=== PATIENT | female | born 1955 | race Caucasian/White ===

== ENCOUNTER 2019-04-17 15:45 | Observation (INO) | payer SELFPAY ==
[~2019-04-17] VITALS: Ht 152.4 cm; Wt 64.4 kg
--- NOTE | 2019-04-17 15:45 | NUR ---
PT ARRIVAL PER POV WITH EX- REQUESTING HELP AT CAR IN PARKING LOT. PT HAS HAD 2 SEIZURES TODAY SHE TOLD HIM ABOUT ON A PHONE CALL THEN HE DROPPED BY TO SEE HER AND ANOTHER SEIZURE OCCURED. HE REPORTS SHE IS KNOWN SEIZURES AND ON MEDICINE. PATIENT IS ALITTLE DISORIENTED STILL IN POST ICTAL PHASE. EX- STATES "SHE IS UNDER STRESS LATELY AND RECENTLY LOST HER SIGNIFICANT OTHER." REPORTS GRAND MAL SEIZURE HX. PT HX LIMITED PATIENT UNABLE TO PROVIDE. WILL REFER TO [facility] RECORDS
[2019-04-17] MEDS ORDERED: LEVETIRACETAM INJECTION 1,000 MG in NS (IVPB) 100 ML IV ONE (16:15)
[2019-04-17] MEDS ORDERED: ONDANSETRON 4 MG/2 ML (SDV) Z0FRAN IVP ONE (16:15)
[2019-04-17] MEDS ORDERED: NS 1000 ML IV BAG IV ONE (16:15)
[2019-04-17 16:25] LABS: HEMATOCRIT 45 % (35-52); HEMOGLOBIN 15.1 G/DL (11.5-16.0); MEAN CORPUSCULAR HEMOGLOBIN 35 PG (25-34); MEAN CORPUSCULAR VOLUME 103 FL (80-99); WHITE BLOOD COUNT 5.6 10^3/uL (4.3-11.0)
[2019-04-17 16:26] LABS: BASOPHILS % (AUTO) 1 % (0-10); EOSINOPHILS % (AUTO) 0 % (0-10); LYMPHOCYTES # (AUTO) 0.6 X 10^3 (1.0-4.0); LYMPHOCYTES % (AUTO) 12 % (12-44); MEAN CORPUSCULAR HGB CONC 34 G/DL (32-36); MEAN PLATELET VOLUME 10.4 FL (7.4-10.4); MONOCYTES # (AUTO) 0.4 X 10^3 (0.0-1.0); MONOCYTES % (AUTO) 8 % (0-12); NEUTROPHILS # (AUTO) 4.5 X 10^3 (1.8-7.8); NEUTROPHILS % (AUTO) 80 % (42-75); PLATELET COUNT 186 10^3/uL (130-400); RED CELL DISTRIBUTION WIDTH 18.3 % (10.0-14.5)
[2019-04-17 16:36] LABS: ALANINE AMINOTRANSFERASE 102 U/L (0-55); ALBUMIN 4.6 GM/DL (3.2-4.5); ALKALINE PHOSPHATASE 67 U/L (40-136); BILIRUBIN,TOTAL 0.6 MG/DL (0.1-1.0); BUN/CREATININE RATIO 12; CALCIUM 9.9 MG/DL (8.5-10.1); CARBON DIOXIDE 24 MMOL/L (21-32); CHLORIDE 98 MMOL/L (98-107); GFR ESTIMATED > 60; GLUCOSE 176 MG/DL (70-105); MAGNESIUM 1.6 MG/DL (1.8-2.4); POTASSIUM 3.9 MMOL/L (3.6-5.0); SODIUM 143 MMOL/L (135-145); TOTAL PROTEIN 8.2 GM/DL (6.4-8.2)
--- NOTE | 2019-04-17 16:44 | Diagnostic Imaging Report ---
PROCEDURE: CT head without contrast. TECHNIQUE: Multiple contiguous axial images were obtained through the brain without the use of intravenous contrast. Auto Exposure Controls were utilized during the CT exam to meet ALARA standards for radiation dose reduction. INDICATION: Multiple seizures today. COMPARISON: None. FINDINGS: The ventricles and cortical sulci appear mildly prominent. There is no midline shift or mass effect. No acute intracranial hemorrhage is seen. There is no CT evidence of acute territorial ischemia. The calvarium appears intact. Visualized paranasal sinuses are clear. IMPRESSION: 1. No acute intracranial hemorrhage or CT evidence of acute territorial ischemia. 2. Generalized parenchymal volume loss. Dictated by: Dictated on workstation # [id number]
--- NOTE | 2019-04-17 16:46 | ED Neurological Problem ---
General Chief Complaint: Neurological Problems Stated Complaint: SEIZURES History of Present Illness Date Seen by Provider: Apr 17, 2019 Time Seen by Provider: 16:42 Initial Comments Patient presenting to the emergency department with ex- for apparent seizures. Patient reports having 2 seizures this morning and then ex- went to check on her and said that she appeared to not feel well. Patient then had a 45 second grand mal seizure per ex-. She had urinary incontinence and bit her tongue. Patient reports being on Depakote 250 mg twice a day with no recent medication changes. She does not know when her last seizure was. She is alert and oriented 2 and she is confused on the date. She says her tetanus is up-to-date. She says she is nauseated but denies any fevers chills vomiting headache neck stiffness or lateral weakness numbness tingling vision changes chest pain or shortness of breath. She is in no obvious distress with normal vital signs. Allergies and Home Medications Allergies Coded Allergies: No Known Drug Allergies (Unverified , 04/17/19) Patient Home Medication List Home Medication List Reviewed: Yes Review of Systems Review of Systems Constitutional: no symptoms reported Eyes: No Symptoms Reported Ears, Nose, Mouth, Throat: no symptoms reported Respiratory: no symptoms reported Cardiovascular: no symptoms reported Gastrointestinal: nausea Genitourinary: no symptoms reported Psychiatric/Neurological: Tonic Clonic Seizures All Other Systems Reviewed Negative Unless Noted: Yes Past Dpzfadl-Sceqts-Zlmiog Hx Patient Social History Recent Foreign Travel: No Contact w/Someone Who Travel: No Physical Exam Vital Signs Capillary Refill : Height, Weight, BMI Height: '" Weight: lbs. oz. kg; BMI Method: General Appearance: WD/WN, no apparent distress HEENT: PERRL/EOMI, pharynx normal Neck: non-tender, full range of motion, supple Respiratory: normal breath sounds, no accessory muscle use Cardiovascular: regular rate, rhythm Gastrointestinal: non tender, soft Back: normal inspection Extremities: normal range of motion Neurologic/Psychiatric: alert Crainal Nerves: PERRL Motor/Sensory: no motor deficit, no sensory deficit Skin: normal color, warm/dry Progress/Results/Core Measures Results/Orders Lab Results Laboratory Tests Test 04/17/19 16:00 04/17/19 18:19 Range/Units White Blood Count 5.6 4.3-11.0 10^3/uL Red Blood Count 4.33 L 4.35-5.85 10^6/uL Hemoglobin 15.1 11.5-16.0 G/DL Hematocrit 45 35-52 % Mean Corpuscular Volume 103 H 80-99 FL Mean Corpuscular Hemoglobin 35 H 25-34 PG Mean Corpuscular Hemoglobin Concent 34 32-36 G/DL Red Cell Distribution Width 18.3 H 10.0-14.5 % Platelet Count 186 130-400 10^3/uL Mean Platelet Volume 10.4 7.4-10.4 FL Neutrophils (%) (Auto) 80 H 42-75 % Lymphocytes (%) (Auto) 12 12-44 % Monocytes (%) (Auto) 8 0-12 % Eosinophils (%) (Auto) 0 0-10 % Basophils (%) (Auto) 1 0-10 % Neutrophils # (Auto) 4.5 1.8-7.8 X 10^3 Lymphocytes # (Auto) 0.6 L 1.0-4.0 X 10^3 Monocytes # (Auto) 0.4 0.0-1.0 X 10^3 Eosinophils # (Auto) 0.0 0.0-0.3 10^3/uL Basophils # (Auto) 0.0 0.0-0.1 10^3/uL Sodium Level 143 135-145 MMOL/L Potassium Level 3.9 3.6-5.0 MMOL/L Chloride Level 98 98-107 MMOL/L Carbon Dioxide Level 24 21-32 MMOL/L Anion Gap 21 H 5-14 MMOL/L Blood Urea Nitrogen 7 7-18 MG/DL Creatinine 0.60 0.60-1.30 MG/DL Estimat Glomerular Filtration Rate > 60 BUN/Creatinine Ratio 12 Glucose Level 176 H 70-105 MG/DL Calcium Level 9.9 8.5-10.1 MG/DL Corrected Calcium 8.5-10.1 MG/DL Magnesium Level 1.6 L 1.8-2.4 MG/DL Total Bilirubin 0.6 0.1-1.0 MG/DL Aspartate Amino Transf (AST/SGOT) 165 H 5-34 U/L Alanine Aminotransferase (ALT/SGPT) 102 H 0-55 U/L Alkaline Phosphatase 67 40-136 U/L Total Protein 8.2 6.4-8.2 GM/DL Albumin 4.6 H 3.2-4.5 GM/DL Serum Alcohol < 10 <10 MG/DL My Orders Orders - LISBETH MOSER DO Valproic Acid (04/17/19 16:09) Ct Head Wo (04/17/19 16:09) Cbc With Automated Diff (04/17/19 16:09) Comprehensive Metabolic Panel (04/17/19 16:09) Alcohol (04/17/19 16:09) Magnesium (04/17/19 16:09) Ua Culture If Indicated (04/17/19 16:09) Drug Screen Stat (Urine) (04/17/19 16:09) Ekg Tracing (04/17/19 16:09) Ondansetron Injection (Zofran Injectio (04/17/19 16:15) Ns Iv 1000 Ml (Sodium Chloride 0.9%) (04/17/19 16:15) Levetiracetam Injection (Keppra Injectio (04/17/19 16:15) Ns Iv 1000 Ml (Sodium Chloride 0.9%) (04/17/19 18:15) Medications Given in ED Current Medications Medications Dose Ordered Sig/J Carlos Route Start Time Stop Time Status Last Admin Dose Admin Levetiracetam 1000 mg/Sodium Chloride 110 ml @ 500 mls/hr ONCE ONCE IV 04/17/19 16:15 04/17/19 16:28 DC 04/17/19 16:37 500 MLS/HR Ondansetron HCl 4 mg ONCE ONCE IVP 04/17/19 16:15 04/17/19 16:16 DC 04/17/19 16:27 4 MG Progress Progress Note : Progress Note We do not have Depakote IV or by mouth available here so I'm going to give her dose of IV Keppra IV fluids check labs urinalysis CT and observed closely. My plan was to let patient go home on increased dose of her Depakote to 500 mg twice a day from 250 mg twice a day. I spoke to Dr. cMneil and he recommended getting started on eloquis for atrial fibrillation and following in clinic in 2 days with him. Patient however cannot walk with a steady gait and felt as if she is going to fall and had to be assisted to and from the bathroom. She is still somewhat sleepy and not at her neurologic baseline so she'll be admitted for altered seizures with prolonged postictal period and new onset atrial fibrillation. Patient transferred in stable condition. Departure Impression Primary Impression: Seizure Additional Impressions: Post-ictal state New onset a-fib Disposition: ADMITTED INPATIENT Condition: Stable Departure-Patient Inst. Referrals: NO,LOCAL PHYSICIAN (PCP) Primary Care Physician LISBETH MOSER DO Apr 17, 2019 16:46
[2019-04-17] MEDS ORDERED: NS IV 1000 ML 1,000 ML IV ONE (18:15)
--- NOTE | 2019-04-17 18:50 | NUR ---
REPORT TO TRAV TORRES. PLAN ADMIT.
[2019-04-17 18:57] LABS: AMPHETAMINE SCREEN, URINE NEGATIVE (NEGATIVE); BARBITURATE SCREEN URINE NEGATIVE (NEGATIVE); BENZODIAZEPINES SCREEN URINE NEGATIVE (NEGATIVE); CANNABINOID SCREEN, URINE NEGATIVE (NEGATIVE); COCAINE SCREEN URINE NEGATIVE (NEGATIVE); METHADONE STAT NEGATIVE (NEGATIVE); METHAMPHETAMINE SCREEN URINE S NEGATIVE (NEGATIVE); OPIATE SCREEN URINE NEGATIVE (NEGATIVE); OXYCODONE STAT NEGATIVE (NEGATIVE); PROPOXYPHENE STAT NEGATIVE (NEGATIVE); TRICYCLIC ANTIDEPRESSANTS SCRE NEGATIVE (NEGATIVE)
[2019-04-17 19:01] LABS: BACTERIA,URINE FEW /HPF; BILIRUBIN,URINE NEGATIVE (NEGATIVE); CLARITY,URINE CLEAR; COLOR,URINE YELLOW; GLUCOSE, URINE (UA) NEGATIVE (NEGATIVE); KETONES,URINE 1+ (NEGATIVE); LEUKOCYTE ESTERASE ,URINE NEGATIVE (NEGATIVE); NITRITE,URINE NEGATIVE (NEGATIVE); PROTEIN,URINE 1+ (NEGATIVE); RBC,URINE 0-2 /HPF; UROBILINOGEN,URINE 0.2 MG/DL (NORMAL)
--- NOTE | 2019-04-17 19:48 | NUR ---
REPORT RECEIVED FROM MELISSA RAVI [facility]. THIS RN WILL AWAIT PT ARRIVAL VIA EMS.
--- NOTE | 2019-04-17 20:30 | NUR ---
BRONWYN LOPEZ admitted to room 419-1, with an admitting diagnosis of SEIZURES, on 04/17/19 from [facility] via [facility], accompanied by EMS. BRONWYN LOPEZ introduced to surroundings, call light, bed controls, phone, TV, temperature control, lights, meal times, smoking policy, visitor policy, side rail policy, bathrooms and showers. Patient Rights given to patient in the handbook. BRONWYN LOPEZ verbalizes understanding that [facility] is not responsible for the loss or damage to any personal effects or valuables that are kept in the patients possession during their hospitalization. BRONWYN LOPEZ verbalizes understanding of Interdisciplinary Patient Education. Patient WAS informed about the Rapid Response Team and its purpose.
[2019-04-17 20:44] VITALS: BP 109/76
[2019-04-17] MEDS ORDERED: DIVA250T2 PO (21:13)
--- NOTE | 2019-04-17 21:30 | NUR ---
DR EVANS NOTIFIED PER PT REQUEST FOR TYLENOL FOR HEADACHE. NEW ORDER RECEIVED.
[2019-04-17] MEDS ORDERED: ACETAMINOPHEN 325 MG TABLET PO PRN (21:45)
--- NOTE | 2019-04-17 21:50 | NUR ---
THIS RN SPOKE TO PT EX , KENNEY. HE STATED THAT PT HAS ONLY BEEN TAKING HER PRESCRIPTION OF DEPAKOTE ONCE DAILY. THIS RN WILL PASS INFORMATION ON TO ONCOMING SHIFT.
[2019-04-18] VITALS: BP 114/76
--- OUTSIDE RECORDS SUMMARY | 2019-04-18 02:00 | XMS REPORT | Continuity of Care Document ---
Author Organization Unknown Address Unknown Allergies There is no data. Medications There is no data. Problems There is no data. Procedures There is no data. Results There is no data. Encounters ACCT No. Visit Date/Time Discharge Status Pt. Type Provider Facility Loc./Unit Complaint [id number] 04/06/2019 16:15:00 04/06/2019 23:59:59 CLS Outpatient [facility]
--- OUTSIDE RECORDS SUMMARY | 2019-04-18 02:05 | XMS REPORT | Continuity of Care Document ---
Author Organization Unknown Address Unknown Allergies There is no data. Medications There is no data. Problems There is no data. Procedures There is no data. Results There is no data. Encounters ACCT No. Visit Date/Time Discharge Status Pt. Type Provider Facility Loc./Unit Complaint [id number] 04/06/2019 16:15:00 04/06/2019 23:59:59 CLS Outpatient [facility]
[2019-04-18 04:00] VITALS: BP 131/70
[2019-04-18 06:05] LABS: BASOPHILS % (AUTO) 0 % (0-10); EOSINOPHILS % (AUTO) 0 % (0-10); HEMATOCRIT 42 % (35-52); HEMOGLOBIN 14.3 G/DL (11.5-16.0); LYMPHOCYTES # (AUTO) 1.2 X 10^3 (1.0-4.0); LYMPHOCYTES % (AUTO) 25 % (12-44); MEAN CORPUSCULAR HEMOGLOBIN 34 PG (25-34); MEAN CORPUSCULAR HGB CONC 34 G/DL (32-36); MEAN CORPUSCULAR VOLUME 101 FL (80-99); MEAN PLATELET VOLUME 10.6 FL (7.4-10.4); MONOCYTES # (AUTO) 0.7 X 10^3 (0.0-1.0); MONOCYTES % (AUTO) 14 % (0-12); NEUTROPHILS % (AUTO) 61 % (42-75); PLATELET COUNT 163 10^3/uL (130-400); RED CELL DISTRIBUTION WIDTH 18.7 % (10.0-14.5); WHITE BLOOD COUNT 4.9 10^3/uL (4.3-11.0)
[2019-04-18 06:35] LABS: ALANINE AMINOTRANSFERASE 86 U/L (0-55); ALBUMIN 3.9 GM/DL (3.2-4.5); ALKALINE PHOSPHATASE 55 U/L (40-136); BILIRUBIN,TOTAL 0.6 MG/DL (0.1-1.0); BUN/CREATININE RATIO 11; CALCIUM 9.2 MG/DL (8.5-10.1); CARBON DIOXIDE 23 MMOL/L (21-32); CHLORIDE 101 MMOL/L (98-107); CREATININE SERUM 0.72 MG/DL (0.60-1.30); GFR ESTIMATED > 60; GLUCOSE 88 MG/DL (70-105); POTASSIUM 3.4 MMOL/L (3.6-5.0); SODIUM 139 MMOL/L (135-145); TOTAL PROTEIN 6.8 GM/DL (6.4-8.2)
--- NOTE | 2019-04-18 06:46 | NUR ---
Dr Finch notified by this RN in regards to consult. New orders received.
[2019-04-18 08:00] VITALS: BP 119/80
--- NOTE | 2019-04-18 09:11 | Consultation-Cardiology ---
HPI-Cardiology Cardiology Consultation: Date of Consultation 04/18/19 Time Seen by a Provider: 08:50 Date of Admission 04-17-19 Attending Physician Daniela Flores DO Admitting Physician Bruna,Local Physician Consulting Physician Serjio Finch MD HPI: Chief Complaint: New onset of a-fib Ms. Ortega is a 63 year old female who has been transferred to [facility] from [facility] ED. She reports she has had an increase in seizures, known seizure disorder, over the last couple days. She reports yesterday she had 2 seizures and called her friend. He is also at the bedside. She states she went to the [facility] and ED had another seizure while there. She reports she has not been consistently compliant with her Depakote, but has been taking it twice a day for the last 4-5 days. She denies any c/o CP, palpitations, syncope or near syncope or LE swelling. She reports with her seizures she has no aura prior. She reports she will begin to feel jittery less than a minute before a seizure ensues. She reports she does not have time to sit and frequently falls at home. She lives alone. She reports her significant other who was living with her a few months ago and she has been increasing stressed. Review of Systems-Cardiology Review of Systems Constitutional: No chills, No fever, No malaise Eyes: No vision change Ears/Nose/Throat: No epistaxis, No recent hearing loss Respiratory: As described under HPI Cardiovascular: As described under HPI Gastrointestinal: No constipation, No diarrhea, No nausea, No vomiting Genitourinary: No dysuria, No hematuria Musculoskeletal: no symptoms reported Skin: No rash on exposed areas, No ulcerations on exposed areas Psychiatric/Neurological: As described under HPI, anxiety, depression; No focal weakness Hematologic: No bleeding abnormalities All Other Systems Reviewed Negative Unless Noted: Yes JSX-Geoyfw-Rzrrbt Hx Patient Social History Alcohol Use: Past History Recreational Drug Use: No Smoking Status: Unknown if Ever Smoked Recent Foreign Travel: No Recent Infectious Disease Expo: No Hospitalization with Isolation: Denies Physical Abuse Screen: No Sexual Abuse: No Past Medical History PMH As described under Assessment. Family Medical History Family Medical History: She reports he mother has a-fib and is on warfarin tx. She reports an older brother has CAD with recent CABG and aorta repair. Allergies and Home Medications Allergies Coded Allergies: codeine (Verified Allergy, Mild, 04/17/19) Penicillins (Verified Allergy, Unknown, 04/17/19) Sulfa (Sulfonamide Antibiotics) (Verified Allergy, Unknown, 04/17/19) Home Medications Apixaban 2.5 Mg Tablet, 5 MG PO BID Prescribed by: ROSANNA LUU on 04/18/19 1512 Diltiazem HCl 120 Mg Cap.er.24h, 120 MG PO DAILY Prescribed by: ROSANNA LUU on 04/18/19 1512 Divalproex Sodium 500 Mg Tablet.dr, 500 MG PO BID Prescribed by: DANIELA FLORES on 04/18/19 1615 Patient Home Medication List Home Medication List Reviewed: Yes Physical Exam-Cardiology Physical Exam Vital Signs/I&O Capillary Refill : Less Than 3 Seconds Constitutional: AAO x 3, well-developed, well-nourished HEENT: PERRL, hearing is well preserved, oral hygience is good Neck: No carotid bruit; carotid pulses are 2 + bilaterally Respiratory: No accessory muscle use, No respiratory distress; chest expansion is symmetric, chest is bilaterally symmetric, lungs clear to percussion Cardiovascular: irregularly irregular; No JVD; S1 and S2 Gastrointestinal: No tender; soft, round, audible bowel sounds Rectal: deferred Extremities: no lower extremity edema bilateral Neurologic/Psychiatric: grossly intact, power is 5/5 both on sides Skin: No rash on exposed areas, No ulcerations on exposed areas Data Review Labs Radiology NAME: BRONWYN ORTEGA MED REC#: [id number] PT STATUS: REG ER : 1955 PHYSICIAN: LISBETH MOSER DO ADMIT DATE: 04/17/19/ER FS Signed Date of Exam: 04/17/19 CT HEAD WO PROCEDURE: CT head without contrast. TECHNIQUE: Multiple contiguous axial images were obtained through the brain without the use of intravenous contrast. Auto Exposure Controls were utilized during the CT exam to meet ALARA standards for radiation dose reduction. INDICATION: Multiple seizures today. COMPARISON: None. FINDINGS: The ventricles and cortical sulci appear mildly prominent. There is no midline shift or mass effect. No acute intracranial hemorrhage is seen. There is no CT evidence of acute territorial ischemia. The calvarium appears intact. Visualized paranasal sinuses are clear. IMPRESSION: 1. No acute intracranial hemorrhage or CT evidence of acute territorial ischemia. 2. Generalized parenchymal volume loss. Dictated by: Dictated on workstation # [id number] Dict: 04/17/19 1639 Trans: 04/17/19 1722 Interpreted by: DENA RODRIGUEZ MD Electronically signed by: DENA RODRIGUEZ MD 04/17/19 1722 ECG Impression ECG Initial ECG Impression: Atrial Fibrillation A/P-Cardiology Assessment/Admission Diagnosis New onset a-fib with controlled rate (first diagnosed on EKG 04-17-19 at [facility] ED) Seizure disorder, reports no aura, frequent falls - for which she is on Depakote Elevated AST/ALT of undetermined etiology Intermittent non-compliance with medications Recent passing of significant other Family h/o - mother - a-fib on warfarin tx; brother - CAD, CABG and aorta repair Discussion and Recomendations New onset a-fib Echocardiogram to eval structure Rate increased with activity - start Diltiazem for rate control From a cardiac stand point OAC is recommended. However, we are deferring the decision to be made by her PCP d/t increased risk of potential of falls d/t seizure disorder. Management of seizures is with medical services Elevated AST/ALT of undetermined etiology - management by medical services Replace electrolytes Further recs will be based on her hospital course We would like to thank medical services for this consult Clinical Quality Measures DVT/VTE Risk/Contraindication: Risk Factor Score Per Nursin RFS Level Per Nursing on Admit: 2=Moderate ROSANNA LUU Apr 18, 2019 09:10
[2019-04-18 09:17] LABS: VALPROIC ACID 42.4 UG/ML (50.0-100.0)
--- NOTE | 2019-04-18 10:06 | NUR ---
PATIENT STATES THE ONLY MEDICATION SHE TAKES IS THE DEPAKOTE 250MG BID. I CALLED LISA IN [place] AND VERIFIED SHE LAST FILLED DEPAKOTE DR 250MG BID #60 04-06-19.
[2019-04-18] MEDS ORDERED: DILTIAZEM 120 MG (CARDIZEM CD) CAP PO NR (10:45)
--- NOTE | 2019-04-18 11:03 | History & Physical-Hospitalist ---
History of Present Illness HPI/Chief Complaint Chief Complaint: Seizures with new onset atrial fibrillation HPI: This is a 63yoWF clinic pt of Dr. Wolfe who presents to the ER in [place] after having multiple seizures while compliant on seizure medication Depakote 25 0 mg BID and found to be a new onset with atrial fibrillation with rapid ventricular response. Dr. Finch was consulted and recommended anticoagulation so he was managing the rapid ventricular response and pt remains stable throughout the night. I did confer with Dr. Martinez Neurology regarding the s ituation he recommended increasing the Depakote to 500 mg BID since the Valproic acid level was 44 to prevent additional seizures considering she will be on anticoagulation of Eliqius to prevent strokes from atrial fibrillation. Currently her heart rate is 150 and we'll do everything we can to rate control that heart rate and I have updated Dr. Finch on the decision to approve Eliquis even in the setting of seizures since she is at high risk for head injury and brain bleed but we will optimize seizure medication in order to prevent seizures to maintain stroke prophylaxis from a fib. Pt does not smoke and does not drink alcohol. Pt lives alone and works at [employer] in [place]. Source: patient Exam Limitations: no limitations Date Seen 04/18/19 Time Seen by a Provider: 10:00 Attending Physician Daniela Flores DO PCP No,Local Physician Referring Physician Date of Admission Apr 17, 2019 at 19:00 Home Medications & Allergies Home Medications Reviewed patient Home Medication Reconciliation performed by pharmacy medication reconciliations medical laboratory technicians and/or nursing. Patients Allergies have been reviewed. Allergies Allergies Coded Allergies codeine (Verified Allergy, Mild, 04/17/19) Penicillins (Verified Allergy, Unknown, 04/17/19) Sulfa (Sulfonamide Antibiotics) (Verified Allergy, Unknown, 04/17/19) Past Vwxfcue-Vgslky-Rikwov Hx Past Med/Social Hx: Reviewed Nursing Past Med/Soc Hx, Reviewed and Corrections made Patient Social History Marrital Status: single Employed/Student: employed ([employer]) Alcohol Use: Past History Recreational Drug Use: No Smoking Status: Never a Smoker Physical Abuse Screen: No Sexual Abuse: No Recent Foreign Travel: No Contact w/other who traveled: No Recent Hopitalizations: No Recent Infectious Disease Expo: No Seasonal Allergies Seasonal Allergies: No Past Medical History Cardiac: Atrial Fibrillation Neurological: Seizure Disorder Musculoskeletal: Fractures History of Blood Disorders: No Review of Systems Constitutional: see HPI EENTM: no symptoms reported Respiratory: no symptoms reported Cardiovascular: palpitations Gastrointestinal: no symptoms reported Genitourinary: no symptoms reported Musculoskeletal: no symptoms reported Skin: no symptoms reported Psychiatric/Neurological: No Symptoms Reported All Other Systems Reviewed Negative Unless Noted: Yes Physical Exam Physical Exam Vital Signs Vital Signs - First Documented 04/17/19 15:45 Temp 97.0 Pulse 108 Resp 20 B/P (MAP) 138/84 (102) Pulse Ox 97 O2 Delivery Room Air Capillary Refill : Less Than 3 Seconds Height, Weight, BMI Height: 5'0.00" Weight: 142lbs. 1.0oz. 64.349243jp; 27.7 BMI Method:Estimated General Appearance: No Apparent Distress, WD/WN Eyes: Right Eye Normal Inspection, Right Eye PERRL HEENT: PERRL/EOMI, TMs Normal, Normal ENT Inspection, Pharynx Normal, Moist Mucous Membranes Neck: Full Range of Motion, Normal Inspection, Non Tender Respiratory: Chest Non Tender, Lungs Clear, Normal Breath Sounds, No Accessory Muscle Use, No Respiratory Distress Cardiovascular: Regular Rate, Rhythm, No Edema, No Gallop, No JVD, No Murmur, Normal Peripheral Pulses Gastrointestinal: Normal Bowel Sounds, No Organomegaly, No Pulsatile Mass, Non Tender, Soft Back: Normal Inspection, No CVA Tenderness, No Vertebral Tenderness Extremity: Normal Capillary Refill, Normal Inspection, Normal Range of Motion, Non Tender, No Calf Tenderness, No Pedal Edema Neurologic/Psychiatric: Alert, Oriented x3, No Motor/Sensory Deficits, Normal Mood/Affect Skin: Normal Color, Warm/Dry Lymphatic: No Adenopathy Results Results/Procedures Labs Laboratory Tests 04/17/19 16:00 04/18/19 05:15 Patient resulted labs reviewed. Assessment/Plan Admission Diagnosis Assessment: Seizure New onset AF w/RVR Needs OAC for CVA PPx Plan: DC home OAC benefits outweigh medical risks of bleeding Increase Depakote to 500mg PO BID Admission Status: Observation Diagnosis/Problems Diagnosis/Problems (1) Seizure Status: Acute (2) Epilepsy Status: Chronic Qualifiers: Epilepsy type: unspecified Intractability: not intractable Status epilepticus: without status epilepticus Qualified Codes: G40.909 - Epilepsy, unspecified, not intractable, without status epilepticus (3) Atrial fibrillation with rapid ventricular response Status: Acute (4) Anticoagulated Status: Acute Clinical Quality Measures DVT/VTE Risk/Contraindication: Risk Factor Score Per Nursin RFS Level Per Nursing on Admit: 2=Moderate DANIELA FLORES DO Apr 18, 2019 11:03
[2019-04-18] MEDS: DIVALPROEX 500 MG DELAYED RELEASE (DEPAKOTE) TAB PO SCH ×2 (11:38→17:00)
[2019-04-18 12:00] VITALS: BP 116/74
[2019-04-18] MEDS ORDERED: APIX2.5T PO (15:12)
[2019-04-18] MEDS ORDERED: DILT120C94 PO (15:12)
--- NOTE | 2019-04-18 16:03 | Consultation-Cardiology ---
HPI-Cardiology Cardiology Consultation: Date of Consultation 04/18/19 Time Seen by a Provider: 15:20 Date of Admission Attending Physician Daniela Brown DO Admitting Physician No,Local Physician Consulting Physician CEDRIC EDUARDO MD, MA, FACP, FACC, [facility] Physician requesting consult: Dr Brown HPI: Chief Complaint: Reason for consultation: Newly diagnosed atrial fibrillation HPI Ms. Ortega is a 63 year old female who has been transferred to [facility] from [facility] ED. She reports she has had an increase in seizures, known seizure disorder, over the last couple days. She reports yesterday she had 2 seizures and called her friend (her ex-). He witnessed one of her seizures and reports that it was the same seizure she has had before. With the seizures, she did lose control of bladder and had a small bite on the R side of her tongue. She states she went to the [facility] and ED had another seizure while there. She reports she has not been consistently compliant with her Depakote, but has been taking it twice a day for the last 4-5 days. She denies any c/o CP, palpitations, syncope or near syncope or LE swelling. She reports with her seizures she has no aura prior. She reports she will begin to feel jittery less than a minute before a seizure ensues. She reports she does not have time to sit and frequently falls at home. She lives alone. She reports her significant other who was living with her a few months ago and she has been increasing stressed. Review of Systems-Cardiology Review of Systems Constitutional: No chills, No fever, No malaise Eyes: No vision change Ears/Nose/Throat: No epistaxis, No recent hearing loss Respiratory: As described under HPI Cardiovascular: As described under HPI Gastrointestinal: No constipation, No diarrhea, No nausea, No vomiting Genitourinary: No dysuria, No hematuria Musculoskeletal: no symptoms reported Skin: No rash on exposed areas, No ulcerations on exposed areas Psychiatric/Neurological: As described under HPI, anxiety, depression; No focal weakness Hematologic: No bleeding abnormalities All Other Systems Reviewed Negative Unless Noted: Yes FOK-[place] Hx Patient Social History Alcohol Use: Past History Recreational Drug Use: No Smoking Status: Unknown if Ever Smoked Recent Foreign Travel: No Recent Infectious Disease Expo: No Hospitalization with Isolation: Denies Physical Abuse Screen: No Sexual Abuse: No Past Medical History PMH As described under Assessment. Family Medical History Family Medical History: She reports he mother has a-fib and is on warfarin tx. She reports an older brother has CAD with recent CABG and aorta repair. Allergies and Home Medications Allergies Coded Allergies: codeine (Verified Allergy, Mild, 04/17/19) Penicillins (Verified Allergy, Unknown, 04/17/19) Sulfa (Sulfonamide Antibiotics) (Verified Allergy, Unknown, 04/17/19) Home Medications Apixaban 2.5 Mg Tablet, 5 MG PO BID Prescribed by: ROSANNA LUU on 04/18/19 1512 Diltiazem HCl 120 Mg Cap.er.24h, 120 MG PO DAILY Prescribed by: ROSANNA LUU on 04/18/19 1512 Divalproex Sodium 250 Mg Tablet.dr, 250 MG PO BID, (Reported) Patient Home Medication List Home Medication List Reviewed: Yes Physical Exam-Cardiology Physical Exam Vital Signs/I&O 04/18/19 04/18/19 04/18/19 04/18/19 04:00 04:46 07:00 08:00 Temp 96.5 98.0 Pulse 91 84 96 93 Resp 20 18 18 B/P (MAP) 131/70 (90) 119/80 (93) Pulse Ox 93 94 O2 Delivery Room Air Room Air 04/18/19 04/18/19 12:00 13:00 Temp 98.7 Pulse 88 77 Resp 18 B/P (MAP) 116/74 (88) Pulse Ox 94 O2 Delivery Room Air 04/18/19 00:00 Intake Total 310 ml Balance 310 ml Capillary Refill : Less Than 3 Seconds Constitutional: AAO x 3, well-developed, well-nourished HEENT: PERRL, hearing is well preserved, oral hygience is good Neck: No carotid bruit; carotid pulses are 2 + bilaterally Respiratory: No accessory muscle use, No respiratory distress; chest expansion is symmetric, chest is bilaterally symmetric, lungs clear to percussion Cardiovascular: irregularly irregular; No JVD; S1 and S2 Gastrointestinal: No tender; soft, round, audible bowel sounds Rectal: deferred Extremities: no lower extremity edema bilateral Neurologic/Psychiatric: grossly intact, power is 5/5 both on sides Skin: No rash on exposed areas, No ulcerations on exposed areas Data Review Labs Laboratory Tests 04/17/19 16:00: White Blood Count 5.6, Red Blood Count 4.33L, Hemoglobin 15.1, Hematocrit 45, Mean Corpuscular Volume 103H, Mean Corpuscular Hemoglobin 35H, Mean Corpuscular Hemoglobin Concent 34, Red Cell Distribution Width 18.3H, Platelet Count 186, Mean Platelet Volume 10.4, Neutrophils (%) (Auto) 80H, Lymphocytes (%) (Auto) 12, Monocytes (%) (Auto) 8, Eosinophils (%) (Auto) 0, Basophils (%) (Auto) 1, Neutrophils # (Auto) 4.5, Lymphocytes # (Auto) 0.6L, Monocytes # (Auto) 0.4, Eosinophils # (Auto) 0.0, Basophils # (Auto) 0.0, Sodium Level 143, Potassium Level 3.9, Chloride Level 98, Carbon Dioxide Level 24, Anion Gap 21H, Blood Urea Nitrogen 7, Creatinine 0.60, Estimat Glomerular Filtration Rate > 60, BUN/Creatinine Ratio 12, Glucose Level 176H, Calcium Level 9.9, Corrected Calcium , Magnesium Level 1.6L, Total Bilirubin 0.6, Aspartate Amino Transf (AST/SGOT) 165H, Alanine Aminotransferase (ALT/SGPT) 102H, Alkaline Phosphatase 67, Total Protein 8.2, Albumin 4.6H, Valproic Acid (Depakene) Level 42.4L, Serum Alcohol < 10 04/17/19 18:19: Urine Color YELLOW, Urine Clarity CLEAR, Urine pH 8.0, Urine Specific [place] 1.020, Urine Protein 1+H, Urine Glucose (UA) NEGATIVE, Urine Ketones 1+H, Urine Nitrite NEGATIVE, Urine Bilirubin NEGATIVE, Urine Urobilinogen 0.2, Urine Leukocyte Esterase NEGATIVE, Urine RBC (Auto) NEGATIVE, Urine RBC 0-2, Urine WBC 2-5, Urine Squamous Epithelial Cells 2-5, Urine Crystals NONE, Urine Bacteria FEWH, Urine Casts NONE, Urine Mucus SMALLH, Urine Culture Indicated NO, Urine Opiates Screen NEGATIVE, Urine Oxycodone Screen NEGATIVE, Urine Methadone Screen NEGATIVE, Urine Propoxyphene Screen NEGATIVE, Urine Barbiturates Screen NEGATIVE, Ur Tricyclic Antidepressants Screen NEGATIVE, Urine Phencyclidine Screen NEGATIVE, Urine Amphetamines Screen NEGATIVE, Urine Methamphetamines Screen NEGATIVE, Urine Benzodiazepines Screen NEGATIVE, Urine Cocaine Screen NEGATIVE, Urine Cannabinoids Screen NEGATIVE 04/18/19 05:15: White Blood Count 4.9, Red Blood Count 4.17L, Hemoglobin 14.3, Hematocrit 42, Mean Corpuscular Volume 101H, Mean Corpuscular Hemoglobin 34, Mean Corpuscular Hemoglobin Concent 34, Red Cell Distribution Width 18.7H, Platelet Count 163, Mean Platelet Volume 10.6H, Neutrophils (%) (Auto) 61, Lymphocytes (%) (Auto) 25, Monocytes (%) (Auto) 14H, Eosinophils (%) (Auto) 0, Basophils (%) (Auto) 0, Neutrophils # (Auto) 3.0, Lymphocytes # (Auto) 1.2, Monocytes # (Auto) 0.7, Eosi nophils # (Auto) 0.0, Basophils # (Auto) 0.0, Sodium Level 139, Potassium Level 3.4L, Chloride Level 101, Carbon Dioxide Level 23, Anion Gap 15H, Blood Urea N itrogen 8, Creatinine 0.72, Estimat Glomerular Filtration Rate > 60, BUN/Creatinine Ratio 11, Glucose Level 88, Calcium Level 9.2, Corrected Calcium 9.3, Total Bilirubin 0.6, Aspartate Amino Transf (AST/SGOT) 106H, Alanine Aminotransferase (ALT/SGPT) 86H, Alkaline Phosphatase 55, Total Protein 6.8, Albumin 3.9 Laboratory Tests 04/17/19 16:00 04/18/19 05:15 A/P-Cardiology Assessment/Admission Diagnosis PAF, first diagnosed on EKG 04-17-19 at [facility] Echo on 04/18/19: LVEF 60-65%, mild MR, trivial AI, RVSP 25 mmHg Seizure disorder for which she is on Depakote, managed by Dr Brown Elevated AST/ALT of undetermined etiology, managed by Dr Brown Mild hypokalemia Intermittent non-compliance with medications Family history: mother has h/o a-fib on warfarin tx; brother - CAD, CABG and aorta repair Discussion and Recomendations * I had a long and detailed discussion with Ms Ortega regarding her CV issues and CV w/u undertaken during this hospitalization and recommended cardiac meds and their pros and cons * We recommend apixaban (OAC) for stroke prophylaxis and long-acting diltiazem for ventricular rate control * We also communicated with Dr Brown who has approved the use of oral anticoagulation for stroke prophylaxis. She has told me that she has co mmunicated with Neurology who have recommended an increase in Depakote and that the use of OAC is reasonable * I did inform Ms Jordan that in case of trauma, risk of bleeding (including intracranial bleeding) will be much higher with OAC, but w/o OAC she is at considerable risk of thromboembolic stroke. She understands all of the issues and wishes to continue with OAC * Replenish K * Management of elevated transaminases is with Dr Brown * Outpt Cardiology f/u is recommended Clinical Quality Measures DVT/VTE Risk/Contraindication: Risk Factor Score Per Nursin RFS Level Per Nursing on Admit: 2=Moderate CEDRIC EDUARDO MD FACP FAC [facility] Apr 18, 2019 16:03
[2019-04-18 16:07] VITALS: BP 102/66
[2019-04-18] MEDS ORDERED: DIVA-76 PO (16:15)
[2019-04-18] MEDS ORDERED: KCL 20 MEQ TAB (K-DUR) PO NR (16:30)
[2019-04-18] MEDS ORDERED: APIXABAN 5 MG (ELIQUIS) TABLET ONE (16:53)
[2019-04-18 17:43] VITALS: BP 102/66
[2019-04-18] MEDS ORDERED: APIXABAN 2.5 MG (ELIQUIS) TABLET PO SCH (21:00)
[2019-04-19] MEDS ORDERED: DILTIAZEM 120 MG (CARDIZEM CD) CAP PO SCH (09:00)
--- NOTE | 2019-04-25 14:33 | Physician Query-Final Dx ---
MOISE NORRIS 04/25/19 1433: Final Diagnosis Give Final Diagnosis Please give Final Diagnosis TAHIRA FLORES DO 04/25/19 2018: Final Diagnosis Give Final Diagnosis AF w/RVR new onset MOISE NORRIS Apr 25, 2019 14:33 TAHIRA FLORES DO Apr 25, 2019 20:18
== END 2019-04-18 16:15 | disposition home or self-care (01) ==
LOC: ER FS 15:58 → 4TH 19:00 → UNDOADMOB 19:00 → 4TH 20:30 → UNDODISOB 04-18 17:45
PROVIDERS: ADMIT Internal Medicine; ATTEND Internal Medicine
DX: G40.409 Other generalized epilepsy and epileptic syndromes, not intractable, without status epilepticus (principal); I48.0 Paroxysmal atrial fibrillation; E87.6 Hypokalemia; I34.0 Nonrheumatic mitral (valve) insufficiency; R74.8 Abnormal levels of other serum enzymes; Z82.49 Family history of ischemic heart disease and other diseases of the circulatory system; Z79.899 Other long term (current) drug therapy
CPT/HCPCS: 36415; 70450; 80053; 80164; 80306; 80320; 81000; 83735; 85025; 93005; 93306; 96374; 96375; G0378

== ENCOUNTER → 2019-06-13 | Outpatient (CLI) | payer SELFPAY ==
[~2019-06-13] MED LIST: APIX2.5T PO; CATHETER FLUSH 10 ML SYR IV PRN; DILT120C94 PO; DIVA-76 PO; DIVA250T2 PO; REGADENOSON 0.4 MG/5 ML SYR (LEXISCAN) IV ONE
[2019-06-13 09:47] VITALS: BP 111/68
[2019-06-13 09:48] VITALS: BP 134/71
--- NOTE | 2019-06-14 10:57 | STRESS TEST ---
DATE OF SERVICE: 06/13/2019 RESTING AND POST REGADENOSON TECHNETIUM-99M TETROFOSMIN SPECT CT IMAGING ORDERING PHYSICIAN: Sonya Jones APRN CLINICAL DIAGNOSIS: Atrial fibrillation. Baseline images were carried out after injection of 10.97 mCi of technetium-99m tetrofosmin. This was followed by 0.4 mg regadenoson and 30.5 mCi of technetium-99m tetrofosmin for stress imaging. The patient noted some headache and shortness of breath following regadenoson infusion, which resolved in a few minutes. Review of images at rest and following stress does not indicate any significant perfusion defects consistent with significant myocardial ischemia or infarction. Gated images show normal global left ventricular systolic function with a calculated ejection fraction of 70%. Left ventricular end diastolic volume is 43 mL. TID is absent (1.04). CONCLUSIONS: 1. No evidence of any significant myocardial ischemia or infarction on this study. 2. Normal regional wall motion. 3. Normal global left ventricular systolic function with a calculated ejection fraction of 70%. Job ID: [id number] DocumentID: [id number] Dictated Date: 06/14/2019 09:53:09 Harness Repairer Date: 06/14/2019 10:56:31 Dictated By: CEDRIC EDUARDO MD, MA, FACP, FACC,
== END ==
LOC: CARD 08:01
PROVIDERS: ATTEND Nurse Practitioner Family
DX: I48.91 Unspecified atrial fibrillation (principal); G40.909 Epilepsy, unspecified, not intractable, without status epilepticus; I08.1 Rheumatic disorders of both mitral and tricuspid valves; Z79.01 Long term (current) use of anticoagulants
CPT/HCPCS: 78452; 93017

== ENCOUNTER → 2021-03-25 | Outpatient (CLI) | payer MEDICAID ==
[~2021-03-25] MED LIST changes: -CATHETER FLUSH 10 ML SYR IV PRN; +DILT120C88 PO; -DILT120C94 PO; -REGADENOSON 0.4 MG/5 ML SYR (LEXISCAN) IV ONE
--- NOTE | 2021-03-25 16:28 | Diagnostic Imaging Report ---
INDICATION: Shortness of breath. COMPARISON: None. FINDINGS: Frontal and lateral views of the chest demonstrate normal heart size and pulmonary vascularity. The lungs are clear. There are no signs of infiltrate, pleural effusions or pneumothoraces. The visualized osseous structures show no acute abnormalities. IMPRESSION: 1. No acute process. No signs of infiltrates, effusions or pneumothoraces. Dictated by: Dictated on workstation # [id number]
== END ==
LOC: RAD FS 15:51
PROVIDERS: ATTEND Family Medicine
DX: R06.02 Shortness of breath (principal)
CPT/HCPCS: 71046